=== PATIENT | female | born 1935 | race Caucasian/White ===

== ENCOUNTER 2019-04-20 16:48 | Emergency (ER) | payer OTHER ==
[~2019-04-20] VITALS: Ht 154.9 cm; Wt 117.5 kg
[2019-04-20 16:54] VITALS: BP_SYST 124; BP_SYST 135
[2019-04-20] MEDS ORDERED: IBUP-1969 PO (17:49)
[2019-04-20] MEDS ORDERED: FEBU80TA PO (17:49)
[2019-04-20] MEDS ORDERED: [UNRECOGNIZED DRUG - OTHER] (17:49)
[2019-04-20] MEDS ORDERED: POTA20TA83 PO (17:49)
[2019-04-20] MEDS ORDERED: FURO-149 PO (17:49)
[2019-04-20] MEDS ORDERED: LIFI1DRO OP (17:49)
[2019-04-20] MEDS ORDERED: CETI1TAB2 PO (17:49)
[2019-04-20] MEDS ORDERED: OMEP40CA33 PO (17:49)
[2019-04-20] MEDS ORDERED: PREG75CA PO (17:49)
[2019-04-20] MEDS ORDERED: cbd oil PO (17:49)
[2019-04-20] MEDS ORDERED: ACET-2165 PO (17:49)
[2019-04-20] MEDS ORDERED: SILD20TA PO (17:49)
[2019-04-20] MEDS ORDERED: OMEG-143 PO (17:49)
[2019-04-20] MEDS ORDERED: BRIO (17:49)
[2019-04-20] MEDS ORDERED: ROTI1PAT7 TD (17:49)
[2019-04-20] MEDS ORDERED: EYEL1TOW2 TP (17:49)
[2019-04-20] MEDS ORDERED: SPIR25TA6 PO (17:55)
[2019-04-20 18:32] LABS: BASOPHILS # (AUTO) 0.1 K/uL (0.0-0.2); BASOPHILS % (AUTO) 0.6 % (0.0-2.0); EOSINOPHILS # (AUTO) 0.5 K/uL (0.0-0.4); EOSINOPHILS % (AUTO) 3.8 % (0.0-4.0); HEMATOCRIT 39.6 % (36-48); HEMOGLOBIN 12.6 g/dL (12.0-16.0); LYMPHOCYTES # (AUTO) 2.7 K/uL (1.0-5.5); LYMPHOCYTES % (AUTO) 20.4 % (20.5-51.5); MEAN CORPUSCULAR HEMOGLOBIN 26 pg (27-31); MEAN CORPUSCULAR HGB CONC 32 % (32-36); MEAN CORPUSCULAR VOLUME 83 fL (79.0-98.0); MONOCYTES # (AUTO) 1.2 K/uL (0.0-1.0); MONOCYTES % (AUTO) 9.1 % (1.7-9.3); NEUTROPHILS # (AUTO) 8.7 K/uL (1.8-7.7); NEUTROPHILS % (AUTO) 66.1 % (40.0-70.0); PLATELET COUNT (AUTO) 214 K/uL (130-430); RED CELL DISTRIBUTION WIDTH 17.5 % (9.0-15.0); WHITE BLOOD COUNT (AUTO) 13.1 K/uL (4.8-10.8)
[2019-04-20 18:40] LABS: ANION GAP 6 (5-15); CALCIUM 8.6 mg/dL (8.4-11.0); CHLORIDE 105 mmol/L (98-107); CREATININE 1.36 mg/dL (0.55-1.30); GLUCOSE 109 mg/dL (70-99); POTASSIUM 4.4 mmol/L (3.5-5.1); SODIUM SERUM 140 mmol/L (136-145); UREA NITROGEN, BLOOD 41 mg/dL (8-21)
[2019-04-20 18:45] LABS: PROTHROMBIN TIME 10.1 SECS (9.5-12.5)
[2019-04-20 18:46] LABS: ALANINE AMINOTRANSFERASE 13 U/L (12-78); ALBUMIN 3.3 g/dL (3.4-4.8); ASPARTATE AMINOTRANSFERASE 22 U/L (10-37); TOTAL BILIRUBIN 0.3 mg/dL (0.0-1.0)
[2019-04-20] MEDS ORDERED: NS 500 ML IV ONE (19:30)
[2019-04-20 19:40] LABS: BILIRUBIN,URINE NEGATIVE (NEGATIVE); BLOOD, URINE NEGATIVE (NEGATIVE); CLARITY/URINE CLEAR (CLEAR); COLOR,URINE YELLOW (YELLOW); GLUCOSE,URINE NEGATIVE (NEGATIVE); KETONES,URINE NEGATIVE (NEGATIVE); LEUKOCYTE ESTERASE ,URINE 1+ (NEGATIVE); NITRITE, URINE NEGATIVE (NEGATIVE); PROTEIN URINE NEGATIVE (NEGATIVE); UROBILINOGEN,URINE 0.2 (0.2-1.0)
[2019-04-20 20:02] LABS: RBC,URINE 0-3 /HPF (0-3); WBC,URINE 20-50 /HPF (0-3)
[2019-04-20 20:03] LABS: BACTERIA,URINE FEW /HPF (None Seen); FINE GRANULAR CASTS,URINE 0-10 /LPF (None Seen); OTHER CASTS, URINE 1 /LPF (None Seen); YEAST,URINE Few /HPF (None Seen)
[2019-04-20 20:20] VITALS: BP_SYST 124
== END 2019-04-20 20:20 | disposition home or self-care (01) ==
LOC: SED 16:48
DX: E86.0 Dehydration (principal); I27.20 Pulmonary hypertension, unspecified; R55 Syncope and collapse; J44.9 Chronic obstructive pulmonary disease, unspecified; Z79.899 Other long term (current) drug therapy
CPT/HCPCS: 36415; 70450; 71045; 80053; 81000; 83605; 83880; 84484; 85025; 85610; 85730; 87040; 87086; 87186; 93005; 99284; J7030